=== PATIENT | female | born 1960 | race Caucasian/White ===

== ENCOUNTER 2018-08-28 08:15 | Inpatient (IN) | payer MEDICAID ==
[2018-08-27 09:43] LABS: BASOPHILS % (AUTO) 0.3 % (0-1); EOSINOPHILS # (AUTO) 0.1 X10'3 (0-0.9); EOSINOPHILS % (AUTO) 1.5 % (0-6); LYMPHOCYTES # (AUTO) 1.9 X10'3 (1.1-4.8); LYMPHOCYTES % (AUTO) 28.5 % (21-51); MEAN CORPUSCULAR HEMOGLOBIN 27.8 PG (27.0-31.0); MEAN CORPUSCULAR HGB CONC 33.2 g/dL (33.0-36.5); MEAN CORPUSCULAR VOLUME 83.9 FL (78-98); MEAN PLATELET VOLUME 7.7 FL (7.4-10.4); MONOCYTES # (AUTO) 0.5 X10'3 (0-0.9); MONOCYTES % (AUTO) 8.1 % (2-12); NEUTROPHILS # (AUTO) 4.2 X10'3 (1.8-7.7); NEUTROPHILS % (AUTO) 61.6 % (42-75); PRE OP HEMATOCRIT 42.9 % (35.0-45.0); PRE OP HEMOGLOBIN 14.2 g/dL (12.0-16.0); PRE OP PLATELET COUNT 259 X10'3 (140-440); RED BLOOD COUNT 5.11 X10'6 (4.20-5.60); RED CELL DISTRIBUTION WIDTH 15.2 % (11.5-14.5)
[2018-08-27 10:00] LABS: PRE OP PROTIME 9.9 SECONDS (9.0-12.0)
[2018-08-27 10:58] LABS: ALBUMIN 3.5 G/DL (3.4-5.0); ALBUMIN/GLOBULIN RATIO 0.8 (1.1-1.5); ALKALINE PHOSPHATASE 81 IU/L (46-116); BLOOD UREA NITROGEN 16 MG/DL (7-18); BUN/CREATININE RATIO 18.2 (6.6-38.0); CALCIUM 9.1 MG/DL (8.5-10.1); CHLORIDE 105 MMOL/L (99-107); CREATININE 0.88 MG/DL (0.40-0.90); PRE OP ALT 18 U/L (30-65); PRE OP ANION GAP 10 (8-16); PRE OP AST 19 U/L (10-37); PRE OP BILIRUB, TOTAL 0.7 MG/DL (0.0-1.0); PRE OP GLUCOSE 108 MG/DL (70-104); PRE OP POTASSIUM 3.8 MMOL/L (3.4-5.1); PRE OP SODIUM 143 MMOL/L (135-145); TOTAL CARBON DIOXIDE 27.8 MMOL/L (24-32); TOTAL PROTEIN 7.9 G/DL (6.4-8.2); eGFR 66 ML/MIN
[2018-08-28] VITALS (19 sets, daily range): BP systolic 123–162; BP diastolic 69–92
[~2018-08-28] VITALS: Ht 152.4 cm; Wt 75.8 kg
[~2018-08-28 08:15] MED LIST: MAGN296S50 PO; cefotetan 2gm/isosm dext IVPB 50 ML IV ONE; famotidine 20mg tablet PO ONE; ringers solution, lacted 1,000 ML IV SCH
[2018-08-28] MEDS ORDERED: MAGN296S50 PO (09:23)
[2018-08-28] MEDS ORDERED: LACT1CAP65 PO (09:23)
[2018-08-28] MEDS ORDERED: MULT-933 PO (09:23)
[2018-08-28] MEDS ORDERED: ENZY1CAP (09:23)
[2018-08-28] MEDS ORDERED: ASCO500C15 PO (09:23)
[2018-08-28] MEDS ORDERED: PSYL0.5215 (09:23)
[2018-08-28] MEDS ORDERED: ondansetron/PF 4mg/2ml inj ONE (11:01)
[2018-08-28] MEDS ORDERED: dexamethasone sod phosphate 10mg/ml inj ONE (11:01)
[2018-08-28] MEDS ORDERED: fluoroscein sod 10% (100mg/ml) 5ml vial ONE (11:01)
[2018-08-28] MEDS ORDERED: sevoflurane 250ml liquid IH ONE (11:01)
[2018-08-28] MEDS ORDERED: BUPIVAcaine/PF 2.5mg/ml (0.25%) 10ml vial ONE (11:03)
[2018-08-28] MEDS ORDERED: BUPIVACAINE liposomal/PF 13.3 MG/ML vial IM ONE (11:04)
[2018-08-28] MEDS ORDERED: fentaNYL/PF 50MCG/1 ML 2ML syringe ONE (11:06)
[2018-08-28] MEDS ORDERED: midazolam 2 mg/2 ml injection ONE (11:07)
[2018-08-28] MEDS ORDERED: ringers solution, lacted 1,000 ML IV SCH (12:21)
[2018-08-28] MEDS ORDERED: proCHLORperazine 10 MG/2 ml inj IV PRN (12:25)
[2018-08-28] MEDS ORDERED: morphine 4 MG/ML inj SYRINge IV PRN ×2 (12:25)
[2018-08-28] MEDS ORDERED: meperidine/PF 25mg/ml syringe IV PRN ×3 (12:25)
[2018-08-28] MEDS ORDERED: ondansetron/PF 4mg/2ml inj IV PRN ×2 (12:25→14:35)
[2018-08-28] MEDS ORDERED: propofol inj 20 ML IV ONE (13:50)
[2018-08-28] MEDS ORDERED: LIDOcaine 1%/PF 5ML 10 MG/ML VIAL ONE (13:50)
[2018-08-28] MEDS ORDERED: meperidine/PF 50mg/ml syringe ONE (13:51)
[2018-08-28] MEDS ORDERED: rocuronium 10mg/ml inj IV ONE (13:51)
--- NOTE | 2018-08-28 14:07 | NUR ---
Received from OR via SURGICAL BED, accompanied by Anesthesiologist ALIE and report given by Anesthesiolgist. PATIENT WITH LMA - REMOVED BY ANESTHESIA SHORTLY AFTER ARRIVAL. 96% SATURATIONS ON 10LPM 20G PIV IN LEFT UE RUNNING LR AT 100. LOW LATERAL ISLAND DRESSING THAT IS CDI. SCDS DONNED. VSS. Addendum: 08/28/18 at 1430 by Td Watson RN, RN Amended: Links added.
[2018-08-28] MEDS ORDERED: glycopyrrolate 0.2mg/ml inj ONE (14:24)
[2018-08-28] MEDS ORDERED: neostigmine methylsulfate 1 MG/ML 10ml vial ONE (14:24)
[2018-08-28] MEDS ORDERED: metoclopramide 5 mg/ml inj IV PRN (14:35)
[2018-08-28] MEDS ORDERED: CADD PCA waste documentation MC PRN (14:35)
[2018-08-28] MEDS ORDERED: LORazepam 2 mg/ml vial IV PRN (14:35)
[2018-08-28] MEDS ORDERED: naloxone 0.4 mg/ml inj IV PRN (14:35)
[2018-08-28] MEDS ORDERED: diphenhydrAMINE 50 mg/ml inj IV PRN (14:35)
[2018-08-28] MEDS: ringers solution, lacted 1,000 ML IV SCH ×2 (14:35→20:54)
[2018-08-28] MEDS ORDERED: temazepam 15mg capsule PO PRN (14:35)
[2018-08-28] MEDS ORDERED: HYDROcodone/acetaminophen 5mg/325mg tablet PO PRN ×2 (14:35)
[2018-08-28] MEDS ORDERED: normal saline 500ml IV soln 500 ML IV PRN (14:35)
[2018-08-28] MEDS ORDERED: mag hydrox/Alum hydrox/simeth 30ml oral suspension PO PRN (14:35)
[2018-08-28] MEDS ORDERED: ketorolac trometh. 30mg/ml inj. IV PRN (14:35)
[2018-08-28] MEDS ORDERED: HYDROmorphone/NS 1 mg/ml CADD 50 ML IV SCH ×2 (15:00)
[2018-08-28] MEDS: HYDROmorphone/NS 1 mg/ml CADD 50 ML IV SCH ×4 (15:06→23:00)
--- NOTE | 2018-08-28 15:17 | NUR ---
ALL CRITERIA FOR TRANSFER TO THE FLOOR HAS BEEN ACHIEVED. VSS. BED LOW, CALL LIGHT AND VS. SET IN PLACE. RN PRESENT TO ACCEPT CARE. PATIENT RESTING COMFORTABLY IN BED. BELONGINGS SENT WITH PATIENT. DRESSINGS CDI. LUCY MENDOZA PRESENT TO ACCEPT CARE AND ASSIST IN SET UP OF VS AND TO ASSESS THE PATIENT. ONE BAG AND GLASSES DELIVERED TO ROOM. 354C Addendum: 08/28/18 at 1530 by Td York - LUCY AYALA Amended: Links added.
[2018-08-28] MEDS: simethicone 80mg chew tab PO SCH (20:17)
[2018-08-29] VITALS: BP 143/84
--- NOTE | 2018-08-29 | NUR ---
Pt up walking at this time, with assist. Addendum: 08/29/18 at 0058 by Serena Zamorano RN Amended: Links added.
[2018-08-29] MEDS: HYDROmorphone/NS 1 mg/ml CADD 50 ML IV SCH ×3 (01:00→05:00)
[2018-08-29] MEDS: ringers solution, lacted 1,000 ML IV SCH (04:45)
--- NOTE | 2018-08-29 05:00 | NUR ---
Pts DAE and Silvana campo at this time as per MD order. Pt has walked twice this noc shift. Has been tolerating this entire noc shift without pushing her CADD button, pt states she hasn't needed it, pain has been tolerable. Addendum: 08/29/18 at 0526 by Serena Zamorano RN Amended: Links added.
[2018-08-29 05:50] LABS: ALBUMIN 2.8 G/DL (3.4-5.0); ANION GAP 9 (8-16); BLOOD UREA NITROGEN 9 MG/DL (7-18); BUN/CREATININE RATIO 11.1 (6.6-38.0); CHLORIDE 105 MMOL/L (99-107); CREATININE 0.81 MG/DL (0.40-0.90); GLUCOSE 121 MG/DL (70-104); SODIUM 140 MMOL/L (135-145); eGFR 72 ML/MIN
[2018-08-29 05:54] LABS: BASOPHILS % (AUTO) 0 % (0-1); EOSINOPHILS % (AUTO) 0 % (0-6); HEMATOCRIT 37.8 % (35.0-45.0); HEMOGLOBIN 12.1 g/dl (12.0-16.0); LYMPHOCYTES # (AUTO) 1.4 X10'3 (1.1-4.8); LYMPHOCYTES % (AUTO) 10.9 % (21-51); MEAN CORPUSCULAR HEMOGLOBIN 26.9 PG (27.0-31.0); MEAN CORPUSCULAR HGB CONC 32.1 g/dL (33.0-36.5); MEAN CORPUSCULAR VOLUME 83.8 FL (78-98); MEAN PLATELET VOLUME 8.2 FL (7.4-10.4); MONOCYTES # (AUTO) 1.1 X10'3 (0-0.9); MONOCYTES % (AUTO) 8.3 % (2-12); NEUTROPHILS # (AUTO) 10.4 X10'3 (1.8-7.7); NEUTROPHILS % (AUTO) 80.8 % (42-75); PLATELET COUNT 261 X10'3 (140-440); RED BLOOD COUNT 4.51 X10'6 (4.20-5.60); RED CELL DISTRIBUTION WIDTH 15.3 % (11.5-14.5); WHITE BLOOD COUNT 12.8 X10'3 (4.5-11.0)
[2018-08-29 08:00] VITALS: BP 127/67
[2018-08-29] MEDS: ascorbic acid 500mg tablet PO SCH (08:49)
[2018-08-29] MEDS: multivitamins, therapeutics tablet PO SCH (08:49)
[2018-08-29] MEDS: lactobacillus rhamnosus 10,000 MMU CELLS/CAPSULE PO SCH ×2 (08:49→19:14)
[2018-08-29] MEDS: simethicone 80mg chew tab PO SCH ×3 (08:49→19:14)
[2018-08-29 11:00] VITALS: BP 119/57
--- NOTE | 2018-08-29 17:20 | NUR ---
Patient in room [facility] 354. I have received report from MARCELA AYALA and had the opportunity to ask questions and assume patient care.
[2018-08-29 19:00] VITALS: BP 109/47
[2018-08-30] VITALS: BP 98/47
--- NOTE | 2018-08-30 06:28 | NUR ---
Patient in room [facility] 354. I have received report from LUCY MEDRANO and had the opportunity to ask questions and assume patient care.
[2018-08-30] MEDS: ascorbic acid 500mg tablet PO SCH (07:51)
[2018-08-30] MEDS: multivitamins, therapeutics tablet PO SCH (07:51)
[2018-08-30] MEDS: lactobacillus rhamnosus 10,000 MMU CELLS/CAPSULE PO SCH (07:51)
[2018-08-30] MEDS: simethicone 80mg chew tab PO SCH ×3 (07:51→18:08)
[2018-08-30 08:30] VITALS: BP 105/57
[2018-08-30 12:13] VITALS: BP 104/51
--- NOTE | 2018-08-30 14:20 | NUR ---
Nutrition consult: Pt hx IBS-C and follows high fiber diet at home. Pt seen by NIDHI and agrees to power pudding at 2PM and w/ dinner tonight. NIDHI encouraged water intake for hydration in addition to fiber intake to prevent further constipation given hx. Pt also dislikes green beans; NIDHI d/w dietary. Addendum: 08/30/18 at [address] Amended: Links added.
[2018-08-30 18:00] VITALS: BP 123/66
--- NOTE | 2018-08-30 18:00 | NUR ---
PER DR DRISCOLL EARLIER PATIENT CANNOT BE DC'D UNTIL SHE CAN PASS GAS. DR SHUKLA ASKED TO BE NOTIFIED IF PATIENT IS NOT DC'D. DR SHUKLA WAS NOTIFIED THAT PATIENT HAS NOT BEEN ABLE TO PASS GAS AND THEREFORE HAS NOT BEEN DC'D PER HER REQUEST. DR SHUKLA ASKED IF PATIENT HAD ANY PAIN, DISCOMFORT, AND N/V, WHICH PATIENT HAS NOT. PATIENT HAS DENIED THOSE COMPLAINTS. DR SHUKLA STATED PATIENT CAN BE DC'D. ONCOMING NURSE AWARE.
--- NOTE | 2018-08-30 18:21 | NUR ---
Problems reprioritized. Patient report given, questions answered & plan of care reviewed with Dre Lyons.
--- NOTE | 2018-08-30 19:48 | NUR ---
Discharge paperwork given to pt, pt understands restrictions, and f/u appt has already been made by patent. Pts Sister is here to take her home, pt escorted with all belongings with w/c assist by nurses andrei. Addendum: 08/30/18 at 1950 by Serena Zamorano RN Amended: Links added.
== END 2018-08-30 19:43 | disposition home or self-care (01) | DRG 519 ==
LOC: PAS IN 09:07 → EDSTATUS 10:45 → SUR 3N 15:20
PROVIDERS: ADMIT Obstetrics & Gynecology; ATTEND Obstetrics & Gynecology
PROC: 0UB70ZZ Excision of Bilateral Fallopian Tubes, Open Approach (ICD-10-PCS; 2018-08-28)
PROC: 0TJB8ZZ Inspection of Bladder, Via Natural or Artificial Opening Endoscopic (ICD-10-PCS; 2018-08-28)
PROC: 0UT90ZZ Resection of Uterus, Open Approach (ICD-10-PCS; principal; 2018-08-28 11:01)
DX: D25.1 Intramural leiomyoma of uterus (principal); K58.9 Irritable bowel syndrome, unspecified; Z98.82 Breast implant status; Z90.12 Acquired absence of left breast and nipple; Z87.891 Personal history of nicotine dependence; Z79.899 Other long term (current) drug therapy; Z91.018 Allergy to other foods
CPT/HCPCS: 36415; 80048; 80053; 82948; 85025; 85610; 85730; 86885; 86900; 86901; 87070; 93005; A4355; A6250; A7000; C1758; G0378; J0780; J1100; J1170; J1885; J2001; J2175; J2250; J2405; J2704; J2710; J3010; J3490; J7030; J7120